=== PATIENT | female | born 1950 | race Caucasian/White ===

== ENCOUNTER 2017-07-17 18:43 | Emergency (ER) | payer MEDICARE, OTHER ==
[~2017-07-17] VITALS: Ht 167.6 cm; Wt 83.0 kg
[2017-07-17 18:47] VITALS: BP 151/82
[2017-07-17] MEDS ORDERED: PRAVACHOL20 MG PO (18:50)
[2017-07-17] MEDS ORDERED: NORVASC2.5 MG PO (18:50)
== END 2017-07-17 20:08 | disposition home or self-care (01) ==
LOC: M.ERS 18:43
DX: S61.213A Laceration without foreign body of left middle finger without damage to nail, initial encounter (principal); I10 Essential (primary) hypertension; Z88.1 Allergy status to other antibiotic agents; Z88.0 Allergy status to penicillin; W26.0XXA Contact with knife, initial encounter; Y93.89 Activity, other specified; Y92.89 Other specified places as the place of occurrence of the external cause; Y99.8 Other external cause status